=== PATIENT | female | born 1945 | race African-American/Black ===

== ENCOUNTER → 2018-07-12 | Day surgery (SDC) | payer MEDICARE ==
[~2018-07-12] MED LIST: ATORVASTATIN CA20 MG PO; CARTIA XT180 MG PO; FENOFIBRATE145 MG PO; FERROUS SULFAT325 MG PO; FOLIC ACID1 MG PO; LOSARTAN POTAS100 MG PO; PROPOFOL IV EMULSION 10 MG/ML 50 ML VIAL ONE; SPIRONOLACTONE25 MG PO; VITAMIN D31000 UNIT PO
--- OUTSIDE RECORDS SUMMARY | 2018-07-12 08:17 | XMS REPORT | Summary of Care ---
Author Author INDIRA SMITH M.D. Organization Unknown Address [facility] Phone Unavailable Care Team Providers Care [employer] Teacher Name Role Phone INDIRA SMITH M.D. Unavailable Unavailable ARELLANO N.P., SILVIO Unavailable Unavailable LUPIS AVILA NE, AMY Unavailable Unavailable INDIRA SMITH MD Unavailable Unavailable Unavailable Unavailable Functional Status Name Dates Details Functional status health issues are not documented Status: Name Dates Details Cognitive status health issues are not documented Status: Problems Name Dates Details Encounter for repeat Papanicolaou smear of cervix (V76.2, Z12.4) Status: Active Vulvar lesion (624.8, N90.89) Status: Active Vaginal dryness (625.8, N89.8) Status: Active Rash (782.1, R21) Status: Active Follow up (V67.9, Z09) Status: Active Medications Name Dates Details Cartia XT 180 MG/24HR CPCR TAKE 1 CAPSULE ONCE DAILY. Active Losartan Potassium 100 MG Oral Tablet TAKE 1 TABLET DAILY. * Refills: 0 Active 30 Tablet Bottle Spironolactone 25 MG Oral Tablet TAKE 1 TABLET DAILY. * Refills: 0 Active 100 Tablet Bottle Fenofibrate 160 MG Oral Tablet TAKE 1 TABLET DAILY. * Refills: 0 Active Atorvastatin Calcium 40 MG Oral Tablet TAKE 1 TABLET AT BEDTIME. * Refills: 0 Active 90 Tablet Bottle Estradiol 0.1 MG/GM Vaginal Cream Insert 1 gram vaginally twice weekly. * Quantity: 1 Refills: 0 ARELLANO N.P., SILVIO Active 42.5 GM Tube Vitamin D (Cholecalciferol) TABS * Refills: 0 Active Folic Acid TABS * Refills: 0 Active Nystatin 628072 UNIT/GM External Powder Apply to affected area Three Times a day until healing is complete * Quantity: 1 Refills: 0 ARELLANO N.P., SILVIO * Start : 30-Aug-2017 Active 15 GM Bottle Allergies and Adverse Reactions Name Dates Details ciprofloxacin (Allergy) Reaction: Rash Status: Active fentanyl (Allergy) Reaction: Rash Status: Active midazolam (Allergy) Reaction: Rash Status: Active Past Medical History Name Dates Details History of hyperlipidemia (V12.29, Z86.39) Status: Resolved History of hypertension (V12.59, Z86.79) Status: Resolved History of malignant neoplasm of colon (V10.05, Z85.038) Status: Resolved Procedures Procedure Dates Details History of Cholecystectomy Completed History of Total hysterectomy with removal of both tubes and ovaries Completed History of Hemicolectomy Completed History of Appendectomy Completed Immunization Name Dates Details Immunizations not documented Family History Name Dates Details Family history of malignant neoplasm of gastrointestinal tract (V16.0, Z80.0) Status: Active Social History Name Dates Details - Status: Name Dates Details Never smoker Vital Signs Date Test Result Details :50 BP Systolic 135 mm[Hg] Status: Comments: Location: LUE; Position: Sitting BP Diastolic 81 mm[Hg] Status: Comments: Location: LUE; Position: Sitting Height 58 in Status: Weight 175.5 lb Status: Body Mass Index Calculated 36.68 kg/m2 Status: Temperature 98.3 f Status: Comments: Method: Oral Heart Rate 88 /min Status: Respiration Rate 17 /min Status: O2 SAT 99 % Status: Comments: Source: :07 BP Systolic 113 mm[Hg] Status: Comments: Location: LUE; Position: Sitting BP Diastolic 70 mm[Hg] Status: Comments: Location: LUE; Position: Sitting Height 149 cm Status: Weight 175.0 lb Status: Body Mass Index Calculated 35.76 kg/m2 Status: Temperature 98.2 f Status: Comments: Method: Oral Heart Rate 70 /min Status: Respiration Rate 18 /min Status: O2 SAT 98 % Status: Comments: Source: Body Surface Area Calculated 1.73 m2 Status: Results Date Description Value Details Results not documented Plan of Care Name Dates Details Planned Observations Planned Goals not documented Planned Encounters Appointment; INDIRA SMITH M.D. 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 Post-op: * -Pelvic examination: Vaginal sutures intact, no bleeding visible. * -Ms. Montero aware to continue using estrace for vaginal atrophy. She is aware of restriction lifting heavy item and gradually go back to active activities bowling. She usually bowl with 12lb bowling ball but plans to start with a smaller size ball. * RTC in 3 months or PRN. * Discussed above with patient (spent 15 minutes face to face). Questions answered. Instructions Name Dates Details Instructions not documented Encounters Appointment; AMY BAUGH M.D. Encounter Diagnosis: Problem not documented On: 10-Mar-2017 11:00 Appointment; INDIRA SMITH M.D. Encounter Diagnosis: Problem not documented On: 23-Aug-2017 9:40 Appointment; INDIRA SMITH M.D. Encounter Diagnosis: Problem not documented On: 30-Aug-2017 10:00 Appointment; INDIRA SMITH M.D. Encounter Diagnosis: Problem not documented On: 27-Sep-2017 10:40 Appointment; INDIRA SMITH M.D. Encounter Diagnosis: Problem not documented On: 28-Feb-2018 10:40 Appointment; INDIRA SMITH M.D. Encounter Diagnosis: Problem not documented On: 07-Mar-2018 10:40 Appointment; INDIRA SMITH M.D. Encounter Diagnosis: Problem not documented On: 05-Apr-2018 11:00 Appointment; AMY BAUGH M.D. Encounter Diagnosis: Problem not documented On: 06-Apr-2018 11:20 Appointment; INDIRA SMITH M.D. Encounter Diagnosis: Problem not documented On: 18-Apr-2018 11:20 Appointment; AMY BAUGH M.D. Encounter Diagnosis: Problem not documented On: 04-May-2018 8:20 Appointment; INDIRA SMITH M.D. Encounter Diagnosis: Problem not documented On: 09-May-2018 9:40
--- OUTSIDE RECORDS SUMMARY | 2018-07-12 08:17 | XMS REPORT | Clinical Summary ---
Author Author [facility] Organization [facility] Address Unknown Phone Unavailable Care Team Providers Care Tire Maintenance Technician Name Role Phone Mark Ruffin MD PCP Allergies Not on File Medications Not on file Active Problems Not on file Encounters Care Team Description Date Type Specialty Mark Ruffin MD Senile osteoporosis (Primary Dx) 06/21/2018 Transcribe Access Orders Mark Ruffin MD Breast cancer screening 12/21/2017 Hospital Radiology Encounter Mark Ruffin MD Breast cancer screening (Primary Dx) 12/16/2017 Transcribe Access Orders Mark Ruffin MD 12/01/2017 Transcribe Access Orders after 07/11/2017 Social History Date Tobacco Use Types Packs/Day Years Used Never Assessed Sex Assigned at Date Recorded Not on file Industry Job Start Date Occupation Not on file Not on file Not on file Travel End Travel History Travel Start No recent travel history available. Last Filed Vital Signs Not on file Plan of Treatment Health Maintenance Due Date Last Done Comments COLON CANCER SCREENING 1997 SHINGLES VACCINES ( of 1997 2) PNEUMOCOCCAL 2012 POLYSACCHARIDE VACCINE AGE 65 AND OVER PNEUMOCOCCAL-13 2012 INFLUENZA VACCINE 12/22/2017 BREAST CANCER SCREENING 12/22/2019 12/21/2017, 12/08/2016, 12/10/2015, Additional history exists Procedures Comments Procedure Name Priority Date/Time Associated Diagnosis MAMMO BREAST SCREEN Routine 12/21/2017 Breast cancer screening TOMOSYNTHESIS BILATERAL 10:13 AM CDT after 07/11/2017 Results * Mammo Breast Screen Tomosynthesis Bilateral (12/21/2017 10:13 AM CDT) Narrative Performed At PROCEDURE:MAMMO BREAST SCREEN TOMOSYNTHESIS BILATERAL [facility] TECHNIQUE: Tomosynthesis images with reconstructed images and computed aided detection (CAD) is utilized in the interpretation of this exam. COMPARISON: 12/08/2016, 12/10/2015, 12/04/2014, 11/30/2013 HISTORY: 72-year-old female presents for screening mammogram. No current breast issues. No family history breast cancer. FINDINGS: There are scattered areas of fibroglandular density. No masses or malignant calcifications are identified. IMPRESSION: No specific mammographic evidence of malignancy. RECOMMENDATION: Next screening mammogram is recommended in one year. BI-RADS 1: Negative This facility is accredited by [employer] for Mammography. A negative x-ray report should not delay biopsy if a dominant or clinically suspicious mass is present. Not all cancers are identified by x-ray.Should you note any changes during your monthly breast self-examination, please notify your doctor.In addition to the above, we recommend you have a breast examination by your healthcare provider every year. [id number] Performing Organization Address City/State/Zipcode Phone Number [facility] [address] [place] [address] after 07/11/2017 Insurance Payer Benefit Subscriber ID Type Phone Address Plan / Group AETNA MEDICARE AETNA xxxxxxxx HMO MEDICARE HMO/PPO [facility] ([place] [place] [address] Advance Directives Patient has advance care planning documents on file. For more information, lucas rios contact: Flo Reddy [address] [place] [address]
[2018-07-12 13:15] VITALS: BP 112/58
== END | disposition home or self-care (01) ==
LOC: OR 08:15
PROVIDERS: ATTEND Internal Medicine Gastroenterology
DX: K29.50 Unspecified chronic gastritis without bleeding (principal); K31.7 Polyp of stomach and duodenum; K44.9 Diaphragmatic hernia without obstruction or gangrene; K21.9 Gastro-esophageal reflux disease without esophagitis; E78.5 Hyperlipidemia, unspecified; I10 Essential (primary) hypertension; Z01.810 Encounter for preprocedural cardiovascular examination; Z85.038 Personal history of other malignant neoplasm of large intestine; Z90.49 Acquired absence of other specified parts of digestive tract; Z98.0 Intestinal bypass and anastomosis status
CPT/HCPCS: 43239; 88305; 88312; 93005; J2704

== ENCOUNTER → 2018-08-16 | Day surgery (SDC) | payer MEDICARE ==
[2018-08-12 12:37] LABS: BASOPHILS % 0.7 % (0.0-1.0); EOSINOPHILS # (AUTO) 0.2 (0.0-0.4); EOSINOPHILS % 3.5 % (0.0-6.0); HEMATOCRIT 34.7 % (34.2-44.1); HEMOGLOBIN 11.1 g/dL (12.0-16.0); LYMPHOCYTES # (AUTO) 2.5 (1.0-3.2); LYMPHOCYTES % 42.1 % (18.0-39.1); MEAN CORPUSCULAR HEMOGLOBIN 28.8 pg (28-32); MEAN CORPUSCULAR VOLUME 90.1 fL (81-99); MONOCYTES # (AUTO) 0.5 (0.2-0.8); MONOCYTES % 8.2 % (4.4-11.3); NEUTROPHILS # (AUTO) 2.7 (2.1-6.9); PLATELET COUNT 300 x10e3/uL (140-360); RED BLOOD COUNT 3.85 x10e6/uL (3.6-5.1)
[~2018-08-16] MED LIST changes: +FAMOTIDINE20 MG PO
--- OUTSIDE RECORDS SUMMARY | 2018-08-16 09:50 | XMS REPORT | Clinical Summary ---
Author Author [facility] Organization [facility] Address Unknown Phone Unavailable Care Team Providers Care Safety Teacher Name Role Phone Mark Ruffin MD PCP [...] Ruffin MD 12/01/2017 Transcribe Access Orders after 08/15/2017 Social History Date Tobacco Use Types Packs/Day [...] Comments COLON CANCER SCREENING 1997 SHINGLES VACCINES (#1) 1997 65+ PNEUMOCOCCAL VACCINE 2012 (1 of 2 - PCV13) PNEUMOCOCCAL 2012 POLYSACCHARIDE VACCINE AGE 65 AND OVER INFLUENZA VACCINE 12/22/2017 BREAST CANCER SCREENING 12/22/2019 12/21/2017, 12/08/2016, 12/10/2015, Additional history exists Procedures Comments Procedure Name Priority Date/Time Associated Diagnosis MAMMO BREAST SCREEN Routine 12/21/2017 Breast cancer screening TOMOSYNTHESIS BILATERAL 10:13 AM CDT after 08/15/2017 Results * Mammo Breast Screen Tomosynthesis Bilateral (12/21/2017 10:13 AM CDT) Narrative Performed At PROCEDURE:MAMMO BREAST SCREEN TOMOSYNTHESIS BILATERAL [facility] TECHNIQUE: Tomosynthesis images with reconstructed images [...] Negative This facility is accredited by The [employer] for Mammography. A negative [...] Performing Organization Address City/State/Zipcode Phone Number [facility] [address] [place] [address] after 08/15/2017 Insurance Payer Benefit Subscriber ID Type Phone Address Plan / Group AETNA MEDICARE AETNA xxxxxxxx HMO MEDICARE HMO/PPO [facility] [place] [address] Advance Directives Patient has advance care planning documents on file. For more information, lucas rios contact: Flo Reddy [address] [place] [address]
[2018-08-16 14:05] VITALS: BP 136/81
== END | disposition home or self-care (01) ==
LOC: OR 09:47
PROVIDERS: ATTEND Internal Medicine Gastroenterology
DX: Z12.11 Encounter for screening for malignant neoplasm of colon (principal); R11.2 Nausea with vomiting, unspecified; Z85.038 Personal history of other malignant neoplasm of large intestine; Z98.0 Intestinal bypass and anastomosis status; I10 Essential (primary) hypertension; E78.5 Hyperlipidemia, unspecified; Z80.8 Family history of malignant neoplasm of other organs or systems; Z88.4 Allergy status to anesthetic agent; Z88.1 Allergy status to other antibiotic agents; Z88.8 Allergy status to other drugs, medicaments and biological substances; K21.9 Gastro-esophageal reflux disease without esophagitis; D12.2 Benign neoplasm of ascending colon; K64.8 Other hemorrhoids
CPT/HCPCS: 36415; 45384; 85025; J2704

== ENCOUNTER → 2021-05-20 | Day surgery (SDC) | payer MEDICARE ==
[~2021-05-20] MED LIST changes: +DEXTROSE 5% 250ML 250 ML IV ONE; +IRBESARTAN300 MG; +JARDIANCE10 MG; +LIDOCAINE HCL 2% LOCAL INJ 5 ML SDV VIAL INJ ONE; +PROPOFOL IV EMULSION 10 MG/ML 20 ML VIAL ONE; -PROPOFOL IV EMULSION 10 MG/ML 50 ML VIAL ONE; +TOPIRAMATE25 MG PO
[2021-05-20 11:55] VITALS: BP 110/57
== END | disposition home or self-care (01) ==
LOC: OR 08:07
PROVIDERS: ATTEND Internal Medicine Gastroenterology
DX: K62.5 Hemorrhage of anus and rectum (principal); Z85.038 Personal history of other malignant neoplasm of large intestine; D12.3 Benign neoplasm of transverse colon; D12.4 Benign neoplasm of descending colon; K64.8 Other hemorrhoids; K64.4 Residual hemorrhoidal skin tags; Z98.0 Intestinal bypass and anastomosis status; I10 Essential (primary) hypertension; E11.9 Type 2 diabetes mellitus without complications; Z88.6 Allergy status to analgesic agent; Z88.1 Allergy status to other antibiotic agents; Z01.812 Encounter for preprocedural laboratory examination; Z20.822 Contact with and (suspected) exposure to COVID-19; Z79.84 Long term (current) use of oral hypoglycemic drugs; Z79.899 Other long term (current) drug therapy
CPT/HCPCS: 36415; 45380; 82948; J2001; J2704; J7070; U0002; 45378

== ENCOUNTER → 2024-05-22 | Outpatient (REF) | payer MEDICARE ==
[~2024-05-22] MED LIST changes: +ALENDRONATE SOD70 MG PO; -DEXTROSE 5% 250ML 250 ML IV ONE; +FENTANYL CITRATE/PF 100MCG/2 ML INJ ONE; +MICARDIS20 MG PO; +RENA-VITE RX T1 EACH PO; +WELLBUTRIN XL300 MG PO
[2024-05-22 13:05] LABS: BASOPHILS % 0.7 % (0.0-1.0); EOSINOPHILS # (AUTO) 0.2 (0.0-0.4); EOSINOPHILS % 2.9 % (0.0-6.0); HEMATOCRIT 39.3 % (34.2-44.1); HEMOGLOBIN 11.9 g/dL (12.0-16.0); LYMPHOCYTES # (AUTO) 1.5 (1.0-3.2); LYMPHOCYTES % 25.6 % (18.0-39.1); MEAN CORPUSCULAR HEMOGLOBIN 29.2 pg (28-32); MEAN CORPUSCULAR HGB CONC 30.3 g/dL (31-35); MEAN CORPUSCULAR VOLUME 96.6 fL (81-99); MONOCYTES # (AUTO) 0.7 (0.2-0.8); MONOCYTES % 11.2 % (4.4-11.3); NEUTROPHILS # (AUTO) 3.4 (2.1-6.9); NEUTROPHILS % 59.3 % (38.7-80.0); PLATELET COUNT 346 x10e3/uL (140-360); RED BLOOD COUNT 4.07 x10e6/uL (3.6-5.1); RED CELL DISTRIBUTION WIDTH 13.2 % (11.7-14.4); WHITE BLOOD COUNT 5.79 x10e3/uL (4.8-10.8)
== END | disposition home or self-care (01) | DRG 848 ==
LOC: LAB 05:00 → EDSTATUS 05-23 08:00
PROVIDERS: ATTEND Internal Medicine Gastroenterology
DX: Z08 Encounter for follow-up examination after completed treatment for malignant neoplasm (principal); Z85.038 Personal history of other malignant neoplasm of large intestine; Z53.9 Procedure and treatment not carried out, unspecified reason
CPT/HCPCS: 36415; 85025; 93005; J2003

== ENCOUNTER → 2024-06-27 | Day surgery (SDC) | payer MEDICARE ==
[2024-06-23 13:30] LABS: BASOPHILS % 0.6 % (0.0-1.0); EOSINOPHILS # (AUTO) 0.1 (0.0-0.4); EOSINOPHILS % 2.7 % (0.0-6.0); HEMATOCRIT 37.9 % (34.2-44.1); HEMOGLOBIN 12.4 g/dL (12.0-16.0); LYMPHOCYTES # (AUTO) 1.7 (1.0-3.2); LYMPHOCYTES % 33.3 % (18.0-39.1); MEAN CORPUSCULAR HEMOGLOBIN 29.2 pg (28-32); MEAN CORPUSCULAR HGB CONC 32.7 g/dL (31-35); MEAN CORPUSCULAR VOLUME 89.2 fL (81-99); MONOCYTES # (AUTO) 0.5 (0.2-0.8); MONOCYTES % 9.2 % (4.4-11.3); NEUTROPHILS # (AUTO) 2.8 (2.1-6.9); NEUTROPHILS % 53.6 % (38.7-80.0); PLATELET COUNT 372 x10e3/uL (140-360); RED BLOOD COUNT 4.25 x10e6/uL (3.6-5.1); WHITE BLOOD COUNT 5.22 x10e3/uL (4.8-10.8)
[~2024-06-27] MED LIST changes: -FENTANYL CITRATE/PF 100MCG/2 ML INJ ONE; +LACTATED RINGER'S 1,000 ML ONE
[2024-06-27 10:46] VITALS: BP 121/62; PULSE 84; RESP 16; O2SAT 97
== END | disposition home or self-care (01) ==
LOC: OR 06:31
PROVIDERS: ATTEND Internal Medicine Gastroenterology
DX: Z08 Encounter for follow-up examination after completed treatment for malignant neoplasm (principal); Z85.038 Personal history of other malignant neoplasm of large intestine; D12.4 Benign neoplasm of descending colon; K64.8 Other hemorrhoids; K62.5 Hemorrhage of anus and rectum; R19.4 Change in bowel habit; Z98.0 Intestinal bypass and anastomosis status; K21.9 Gastro-esophageal reflux disease without esophagitis; Z90.49 Acquired absence of other specified parts of digestive tract; D64.9 Anemia, unspecified; I12.9 Hypertensive chronic kidney disease with stage 1 through stage 4 chronic kidney disease, or unspecified chronic kidney disease; N18.9 Chronic kidney disease, unspecified; E78.5 Hyperlipidemia, unspecified; R06.02 Shortness of breath; M06.9 Rheumatoid arthritis, unspecified; Z88.1 Allergy status to other antibiotic agents; Z88.8 Allergy status to other drugs, medicaments and biological substances; Z01.812 Encounter for preprocedural laboratory examination; Z79.899 Other long term (current) drug therapy; Z80.0 Family history of malignant neoplasm of digestive organs
CPT/HCPCS: 36415; 45384; 45385; 85025; 88305; J2003; J2704; J7121

== ENCOUNTER → 2024-07-31 | Outpatient (REF) | payer MEDICARE ==
[~2024-07-31] MED LIST changes: +DIATRIZOATE MEGL/DIATRIZOA SOD 30 ML BTL PO ONE; -LACTATED RINGER'S 1,000 ML ONE; -LIDOCAINE HCL 2% LOCAL INJ 5 ML SDV VIAL INJ ONE; -PROPOFOL IV EMULSION 10 MG/ML 20 ML VIAL ONE
== END ==
LOC: CT 13:08
PROVIDERS: ATTEND Nurse Practitioner Family
DX: R97.0 Elevated carcinoembryonic antigen [CEA] (principal); Z85.038 Personal history of other malignant neoplasm of large intestine
CPT/HCPCS: 74176; Q9963

== ENCOUNTER → 2024-09-07 | Outpatient (REF) | payer MEDICARE ==
[~2024-09-07] MED LIST changes: -DIATRIZOATE MEGL/DIATRIZOA SOD 30 ML BTL PO ONE; +IOPAMIDOL 370 MG/ML 100 ML INFUS..BTL INJ ONE; +SODIUM CHLORIDE 0.9% 500ML 500 ML ONE
[2024-09-07 13:37] LABS: CREATININE, SERUM 1.44 mg/dL (0.57-1.11)
== END ==
LOC: CT 12:30
PROVIDERS: ATTEND Internal Medicine
DX: R91.1 Solitary pulmonary nodule (principal)
CPT/HCPCS: 36415; 71260; 82565; 84520; 96360; J7040; Q9967